=== PATIENT | male | born 1995 | race Asian ===

== ENCOUNTER 2020-08-17 13:55 | Emergency (ER) | payer BC, OTHER, SELFPAY ==
[~2020-08-17] VITALS: Ht 165.1 cm; Wt 93.9 kg
[2020-08-17 14:09] VITALS: BP 128/74
--- NOTE | 2020-08-17 16:17 | NUR ---
COVID SWAB SENT. Patient discharged to home in stable condition. Written and verbal after care instructions given. Patient verbalizes understanding of instruction.
== END 2020-08-17 16:18 | disposition home or self-care (01) ==
LOC: ER 13:55
DX: B34.9 Viral infection, unspecified (principal); R05 Cough; R51.9 Headache, unspecified; J02.9 Acute pharyngitis, unspecified; Z20.822 Contact with and (suspected) exposure to COVID-19
CPT/HCPCS: 99283; C9803; U0003